=== PATIENT | male | born 1975 | race Caucasian/White ===

== ENCOUNTER → 2017-07-15 | Outpatient (CLI) | payer OTHER ==
--- NOTE | 2017-07-16 22:15 | MR ---
EXAMINATION TYPE: MR shoulder RT wo con DATE OF EXAM: 07/15/2017 COMPARISON: NONE HISTORY: Decrease range of motion, Rt shoulder pain TECHNIQUE: Multiplanar, multisequence imaging of the right shoulder is performed without contrast. FINDINGS: There is a shoulder joint effusion. Subscapularis tendon is intact. Biceps tendon is intact. There is spurring at the AC joint. There is no significant subacromial impingement. There is narrowing of the glenohumeral joint space with spur formation on the humeral head and the glenoid labrum. There are small foci of increased signal in the supraspinatus tendon near the greater tuberosity of t he humerus consistent with small partial tears. I see no definite complete tear. 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 Shoulder joint effusion. Intrasubstance tears of the supraspinatus tendon without a complete rotator cuff tear. No fracture se en.
== END | disposition home or self-care (01) ==
LOC: RADMRIMAIN 13:34
PROVIDERS: ATTEND Orthopaedic Surgery
DX: M19.011 Primary osteoarthritis, right shoulder (principal); M75.111 Incomplete rotator cuff tear or rupture of right shoulder, not specified as traumatic

== ENCOUNTER → 2018-10-03 | Outpatient (CLI) | payer OTHER ==
--- NOTE | 2018-10-03 08:23 | US ---
EXAMINATION TYPE: US kidneys/renal and bladder DATE OF EXAM: 10/03/2018 COMPARISON: NONE CLINICAL HISTORY: 42-year-old male R30.0 Dysuria, R39.12 Weak Urine Stream. Patient was on Flomax but has since stopped working, rt nephrectomy 25+yrs ago TECHNIQUE: Multiple sonographic images of the kidneys and bladder are obtained. FINDINGS: EXAM MEASUREMENTS: Right Kidney: Surgically absent Left Kidney: 13.2 x 8.0 x 7.5 cm Right Kidney: surgically absent Left Kidney: large in size compatible with compensatory hypertrophy, no masses or hydronephrosis seen Bladder: The circumferential bladder wall thickening measuring up to 6 mm possibly secondary to poor distention. Machine Sprayer notes: Patient having prostate exam next. Unable to fill bladder more due to exam to follow. Bilateral Jets seen: left IMPRESSION: 1. Status post right nephrectomy. Some compensatory hypertrophy noted of the left kidney. No hydronep hrosis. 2. Circumferential bladder wall thickening may relate to incomplete distention, chronic bladder wall hypertrophy, or cystitis. Clinically correlate.
--- NOTE | 2018-10-04 08:26 | US ---
EXAMINATION TYPE: US prostate transrectal DATE OF EXAM: 10/03/2018 COMPARISON: NONE CLINICAL HISTORY: R30.0 Dysuria, R39.12 Weak Urine Stream. Patient on Flomax for 1-2 yrs and had rece ntly stopped, rt nephrectomy This examination was performed using the transrectal probe. EXAM MEASUREMENTS: Gland Size: 3.4 x 4.0 x 2.1cm Volume: 14.9ml Predicted PSA: 1.8 Actual PSA (if available):called office and no PSA level was ever done Heterogeneous central zone with mostly homogeneous peripheral zone with no suspicious focal abnormali ty seen. IMPRESSION: Findings of mild benign prostatic hyperplasia with heterogenous central zone containing nodules with internal calcifications. No suspicious finding is seen in the peripheral zone at this ti me. Predicted PSA = volume x 0.12 ng/ml Calculated Volume = 0.5236 x L x W x H
== END | disposition home or self-care (01) ==
LOC: RADUSWWP 06:52
PROVIDERS: ATTEND Internal Medicine
DX: N28.81 Hypertrophy of kidney (principal); R93.41 Abnormal radiologic findings on diagnostic imaging of renal pelvis, ureter, or bladder; N40.0 Benign prostatic hyperplasia without lower urinary tract symptoms; N42.89 Other specified disorders of prostate; Z90.5 Acquired absence of kidney
CPT/HCPCS: 76770; 76872

== ENCOUNTER 2019-02-14 14:01 | Emergency (ER) | payer OTHER ==
[2019-02-14 14:28] VITALS: TEMP 98.1
[2019-02-14] MEDS ORDERED: ONDANSETRON 4 MG/2 ML VIAL IVP STA (14:55)
[2019-02-14] MEDS ORDERED: SODIUM CHLORIDE 0.9% 1,000 ML IV STA ×2 (14:55)
[2019-02-14] MEDS ORDERED: PANTOPRAZOLE 40 MG/10 ML VIAL IVP STA (14:55)
[2019-02-14] MEDS ORDERED: MORPHINE SULFATE 4 MG/ML SYRINGE IV STA (14:55)
[2019-02-14 15:24] LABS: Appearance,Urine Clear (Clear); Bilirubin,Urine Negative (Negative); Blood,Urine Negative (Negative); Color,Urine Yellow; Glucose,Urine (UA) Negative (Negative); Ketones,Urine Negative (Negative); Leukocyte Esterase,Urine Negative (Negative); Nitrite,Urine Negative (Negative); Protein,Urine Negative (Negative); Specific Gravity,Urine 1.008 (1.001-1.035); Urobilinogen,Urine <2.0 mg/dL (<2.0)
[2019-02-14 15:36] LABS: Basophils % (A) 1 %; Eosinophils # (A) 0.1 k/uL (0-0.7); Eosinophils % (A) 1 %; HCT 41.9 % (39.0-53.0); HGB 14.1 gm/dL (13.0-17.5); Lymphocytes # (A) 1.1 k/uL (1.0-4.8); Lymphocytes % (A) 20 %; MCH 28.8 pg (25.0-35.0); MCHC 33.6 g/dL (31.0-37.0); MCV 85.6 fL (80.0-100.0); Mean Platelet Volume 5.5; Monocytes # (A) 0.4 k/uL (0-1.0); Monocytes % (A) 7 %; Neutrophils # (A) 3.9 k/uL (1.3-7.7); Neutrophils % (A) 69 %; Platelet Count 250 k/uL (150-450); RDW 12.5 % (11.5-15.5); WBC 5.7 k/uL (3.8-10.6)
--- NOTE | 2019-02-14 15:36 | ED ---
Abdominal Pain HPI - General Chief Complaint: Abdominal Pain Stated Complaint: Abd pain Time Seen by Provider: 02/14/19 14:45 Source: patient, RN notes reviewed, old records reviewed Mode of arrival: ambulatory Limitations: no limitations - History of Present Illness Initial Comments: Patient is a 43-year-old male M he presents emergency department today with 2 days of right and left-sided lower abdominal pain. Patient reports that he's been having some nausea, chills 0. 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 Patient states that he did have a pulling injury lifting a lot of heavy weight on Monday the day before his symptoms started. He states the pain does not seem to be within his muscles as Patient reports he palpates and can twist and turn without movement but the pain seems to be deeper and more burning and sharp stabbing. Patient states that he has had an episode where he was near passing out due to pain. Patient states that he has no chest pain or shortness of breath. He denies any specific fever but has felt chilled from time to time. - Related Data Home Medications Medication Instructions Recorded Confirmed Atomoxetine HCl [Strattera] 40 mg PO QAM 09/06/15 09/06/15 Ipratropium-Albuterol Nebulize 3 ml INHALATION DAILY 09/06/15 09/06/15 [Duoneb 0.5 mg-3 mg/3 ml Soln] Tamsulosin HCl [Flomax] 0.4 mg PO DAILY 09/06/15 09/06/15 Previous Rx's Medication Instructions Recorded Acetaminophen-Codeine 300-30mg 1 each PO Q6H PRN #20 tablet 09/06/15 [Tylenol #3] Amoxicillin/Potassium Clav 1 each PO Q12HR #20 tab 09/06/15 [Augmentin 875-125 Tablet] Ibuprofen [Motrin] 800 mg PO Q6HR PRN #30 tab 09/06/15 Allergies Allergy/AdvReac Type Severity Reaction Status Date / Time No Known Allergies Allergy Verified 02/14/19 14:28 Review of Systems ROS Statement: Those systems with pertinent positive or pertinent negative responses have been documented in the HPI. ROS Other: All systems not noted in ROS Statement are negative. Past Medical History Past Medical History: Asthma, Prostate Disorder History of Any Multi-Drug Resistant Organisms: MRSA Date of last positivie culture/infection: 11/2015 MDRO Source:: RIGHT KNEE Past Surgical History: No Surgical Hx Reported Past Psychological History: ADD/ADHD Smoking Status: Never smoker Past Alcohol Use History: None Reported Past Drug Use History: Marijuana General Exam - General Exam Comments Initial Comments: Alert and oriented 43-year-old male. Patient appears in no significant distress. Limitations: no limitations General appearance: alert, in no apparent distress Head exam: Present: atraumatic, normocephalic, normal inspection Eye exam: Present: normal appearance, PERRL, EOMI. Absent: scleral icterus, conjunctival injection, periorbital swelling ENT exam: Present: normal exam, mucous membranes moist Neck exam: Present: normal inspection. Absent: tenderness, meningismus, lymphadenopathy Respiratory exam: Present: normal lung sounds bilaterally. Absent: respiratory distress, wheezes, rales, rhonchi, stridor Cardiovascular Exam: Present: regular rate, normal rhythm, normal heart sounds. Absent: systolic murmur, diastolic murmur, rubs, gallop, clicks GI/Abdominal exam: Present: soft, tenderness (Patient's tenderness over the left lower quadrant. Patient has evidence of scar over the right flank from the right kidney removal.), normal bowel sounds. Absent: distended, guarding, rebound, rigid Extremities exam: Present: normal inspection, full ROM, normal capillary refill. Absent: tenderness, pedal edema, joint swelling, calf tenderness Course Vital Signs 02/14/19 02/14/19 14:25 18:33 Temperature 98.1 F Pulse Rate 90 88 Respiratory 20 18 Rate Blood Pressure 135/85 131/86 O2 Sat by Pulse 99 98 Oximetry - Reevaluation(s) Reevaluation #1: 02/14/19 17:18 Was reevaluated, still continues to complain his pain is 8 out of 10. Medical Decision Making - Medical Decision Making 43 year old male with left sided abdominal pain for 2 days. Patient reports pain is deeper and complains of cramping. At this time labs are normal, contineus to complain of pain. CT abdomen and pelvis completed and shows no acute abnormality, in regards to left patient pain. PAtient advised to follow up with PCP. Return parameters discussed. - Lab Data Result diagrams: 02/14/19 15:10 02/14/19 15:10 Lab Results 02/14/19 02/14/1902/14/19 Range/Units 15:10 15:10 15:10 WBC 5.7 (3.8-10.6) k/uL RBC 4.90 (4.30-5.90) m/uL Hgb 14.1 (13.0-17.5) gm/dL Hct 41.9 (39.0-53.0) % MCV 85.6 (80.0-100.0) fL MCH 28.8 (25.0-35.0) pg MCHC 33.6 (31.0-37.0) g/dL RDW 12.5 (11.5-15.5) % Plt Count 250 (150-450) k/uL Neutrophils % 69 % Lymphocytes % 20 % Monocytes % 7 % Eosinophils % 1 % Basophils % 1 % Neutrophils # 3.9 (1.3-7.7) k/uL Lymphocytes # 1.1 (1.0-4.8) k/uL Monocytes # 0.4 (0-1.0) k/uL Eosinophils # 0.1 (0-0.7) k/uL Basophils # 0.0 (0-0.2) k/uL PT 10.1 (9.0-12.0) sec INR 0.9 (<1.2) APTT 30.6 H (22.0-30.0) sec Sodium 137 (137-145) mmol/L Potassium 4.2 (3.5-5.1) mmol/L Chloride 102 (98-107) mmol/L Carbon Dioxide 26 (22-30) mmol/L Anion Gap 9 mmol/L BUN 12 (9-20) mg/dL Creatinine 0.63 L (0.66-1.25) mg/dL Est GFR (CKD-EPI)AfAm >90 (>60 ml/min/1.73 sqM) Est GFR (CKD-EPI)NonAf >90 (>60 ml/min/1.73 sqM) Glucose 91 (74-99) mg/dL Calcium 8.9 (8.4-10.2) mg/dL Total Bilirubin 0.7 (0.2-1.3) mg/dL AST 24 (17-59) U/L ALT 23 (21-72) U/L Alkaline Phosphatase 74 (38-126) U/L Troponin I (0.000-0.034) ng/mL Total Protein 6.6 (6.3-8.2) g/dL Albumin 4.0 (3.5-5.0) g/dL Amylase 46 (30-110) U/L Lipase 60 (23-300) U/L Urine Color Urine Appearance (Clear) Urine pH (5.0-8.0) Ur Specific [place] (1.001-1.035) Urine Protein (Negative) Urine Glucose (UA) (Negative) Urine Ketones (Negative) Urine Blood (Negative) Urine Nitrite (Negative) Urine Bilirubin (Negative) Urine Urobilinogen (<2.0) mg/dL Ur Leukocyte Esterase (Negative) 02/14/19 02/14/19 Range/Units 15:10 15:10 WBC (3.8-10.6) k/uL RBC (4.30-5.90) m/uL Hgb (13.0-17.5) gm/dL Hct (39.0-53.0) % MCV (80.0-100.0) fL MCH (25.0-35.0) pg MCHC (31.0-37.0) g/dL RDW (11.5-15.5) % Plt Count (150-450) k/uL Neutrophils % % Lymphocytes % % Monocytes % % Eosinophils % % Basophils % % Neutrophils # (1.3-7.7) k/uL Lymphocytes # (1.0-4.8) k/uL Monocytes # (0-1.0) k/uL Eosinophils # (0-0.7) k/uL Basophils # (0-0.2) k/uL PT (9.0-12.0) sec INR (<1.2) APTT (22.0-30.0) sec Sodium (137-145) mmol/L Potassium (3.5-5.1) mmol/L Chloride (98-107) mmol/L Carbon Dioxide (22-30) mmol/L Anion Gap mmol/L BUN (9-20) mg/dL Creatinine (0.66-1.25) mg/dL Est GFR (CKD-EPI)AfAm (>60 ml/min/1.73 sqM) Est GFR (CKD-EPI)NonAf (>60 ml/min/1.73 sqM) Glucose (74-99) mg/dL Calcium (8.4-10.2) mg/dL Total Bilirubin (0.2-1.3) mg/dL AST (17-59) U/L ALT (21-72) U/L Alkaline Phosphatase (38-126) U/L Troponin I <0.012 (0.000-0.034) ng/mL Total Protein (6.3-8.2) g/dL Albumin (3.5-5.0) g/dL Amylase (30-110) U/L Lipase (23-300) U/L Urine Color Yellow Urine Appearance Clear (Clear) Urine pH 6.0 (5.0-8.0) Ur Specific [place] 1.008 (1.001-1.035) Urine Protein Negative (Negative) Urine Glucose (UA) Negative (Negative) Urine Ketones Negative (Negative) Urine Blood Negative (Negative) Urine Nitrite Negative (Negative) Urine Bilirubin Negative (Negative) Urine Urobilinogen <2.0 (<2.0) mg/dL Ur Leukocyte Esterase Negative (Negative) 02/14/19 17:19 EKG performed at 1535 inches normal sinus rhythm septal infarct age undetermined. Ventricular rate of 69 bpm. Intervals 144 ms. QS hindu is 98 ms. QT QTc is 414/443 ms. - Radiology Data Radiology results: report reviewed CXR shows Suspected tiny right pleural effusion, no acute focal infiltrate. KUB shows no acute process. CT shows previous surgery. Right nephrectomy. No sign of acute abdomen and pelvis. No cause LLQ pain. Disposition Clinical Impression: Left sided abdominal pain Disposition: HOME SELF-CARE Condition: Good Instructions (If sedation given, give patient instructions): Abdominal Pain (ED) Additional Instructions: Please use medication as discussed. Please follow up with family doctor if symptoms have not improved over the next two days. Please return to the emergency room if your symptoms increase or worsen or for any other concerns. Is patient prescribed a controlled substance at d/c from ED?: No Referrals: Olga Amaya MD [Primary Care Provider] - 1-2 days Time of Disposition: 18:06
--- NOTE | 2019-02-14 15:36 | XR ---
EXAMINATION TYPE: XR chest 2V DATE OF EXAM: 02/14/2019 COMPARISON: NONE HISTORY: Chest and abdominal pain after heavy lifting. TECHNIQUE: Frontal and lateral views of the chest are obtained. FINDINGS: There is no focal air space opacity or pneumothorax seen. Suggestion of small to tiny rig ht pleural effusion on the lateral view with blunting of posterior costophrenic angle. The cardiac si lhouette size is within normal limits. Calcifications or ossifications over left scapula could refl ect intra-articular loose bodies. The osseous structures are intact. IMPRESSION: Suspect tiny right pleural effusion. No acute focal infiltrate.
[2019-02-14 15:37] LABS: ALT 23 U/L (21-72); AST 24 U/L (17-59); African American GFR (CKD) >90 (>60 ml/min/1.73 sqM); Alkaline Phosphatase 74 U/L (38-126); Amylase 46 U/L (30-110); Anion Gap 9 mmol/L; Blood Urea Nitrogen 12 mg/dL (9-20); Calcium 8.9 mg/dL (8.4-10.2); Carbon Dioxide 26 mmol/L (22-30); Chloride 102 mmol/L (98-107); Glucose 91 mg/dL (74-99); Potassium 4.2 mmol/L (3.5-5.1); Sodium 137 mmol/L (137-145); Total Bilirubin 0.7 mg/dL (0.2-1.3); Total Protein 6.6 g/dL (6.3-8.2)
--- NOTE | 2019-02-14 15:37 | XR ---
EXAMINATION TYPE: XR KUB DATE OF EXAM: 02/14/2019 3:31 PM CLINICAL HISTORY: Abdominal pain after lifting injury. TECHNIQUE: Two Upright KUB images of the abdomen are obtained. COMPARISON: None. FINDINGS: Scattered gas is seen in non-distended stomach and small bowel loops. Gas and fecal materia l is seen in non-distended colon. Cholecystectomy clips are seen. Surgical clips right pelvis are not ed. Lung bases are clear. IMPRESSION: Overall nonobstructive bowel gas pattern.
[2019-02-14 15:38] LABS: INR 0.9 (<1.2); Partial Thromboplastin Time 30.6 sec (22.0-30.0); Prothrombin Time 10.1 sec (9.0-12.0)
--- NOTE | 2019-02-14 18:00 | CT ---
EXAMINATION TYPE: CT abdomen pelvis w con DATE OF EXAM: 02/14/2019 COMPARISON: None HISTORY: Left lower quadrant pain. CT DLP: 915.1 mGycm Automated exposure control for dose reduction was used. TECHNIQUE: Helical acquisition of images was performed from the lung bases through the pelvis. CONTRAST: Performed without Oral Contrast and with IV Contrast, patient injected with 100 mL of Isovue 300. FINDINGS: Lung bases are clear. There is no pleural effusion. Heart size is normal. There is no pericardial eff usion. Stomach appears normal. Liver spleen pancreas gallbladder appear normal. The bile ducts are no t dilated. There are clips from right nephrectomy. Left kidney has compensatory hypertrophy. There is no hydronephrosis. There is no retroperitoneal adenopathy. Bladder distends smoothly. There is no in guinal hernia. There is no free fluid in the pelvis. There are surgical clips on the right side in th e pelvis. There is no evidence of a pelvic mass. Appendix appears normal. There is no mesenteric chela a. There is no ascites or free air. There is no sign of a bowel obstruction. There is L5-S1 disc spac e narrowing with vacuum disc and spur formation. There is no evidence of compression fracture. The maged ny pelvis is intact. There are small degenerative cysts in the right acetabulum. IMPRESSION: PREVIOUS SURGERY. RIGHT NEPHRECTOMY. NO SIGN OF ACUTE ABDOMEN AND PELVIS. I DO NOT SEE A CAUSE FOR LE FT LOWER QUADRANT PAIN.
[2019-02-14 18:34] VITALS: BP 131/86; PULSE 88; RESP 18
== END 2019-02-14 18:35 | disposition home or self-care (01) ==
LOC: EC 14:01
DX: R10.32 Left lower quadrant pain (principal); J45.909 Unspecified asthma, uncomplicated; N42.9 Disorder of prostate, unspecified; F90.9 Attention-deficit hyperactivity disorder, unspecified type; Z79.51 Long term (current) use of inhaled steroids; Z79.899 Other long term (current) drug therapy; Z90.5 Acquired absence of kidney; Z86.14 Personal history of Methicillin resistant Staphylococcus aureus infection
CPT/HCPCS: 36415; 93005; 80053; 82150; 83690; 84484; 85025; 85610; 85730; 81003; 71046; 74018; 74177; 99285; 96374; 96375 ×2; 96361 ×3; J2270; J2405; C9113; Q9967

== ENCOUNTER 2022-04-22 09:00 | Emergency (ER) | payer OTHER ==
[2022-04-22 09:07] VITALS: BP 217/81; PULSE 91; RESP 20; TEMP 98.2
[2022-04-22 10:53] LABS: Appearance,Urine Clear (Clear); Bilirubin,Urine Negative (Negative); Blood,Urine Negative (Negative); Color,Urine Light Yellow; Glucose,Urine (UA) Negative (Negative); Ketones,Urine Negative (Negative); Leukocyte Esterase,Urine Negative (Negative); Nitrite,Urine Negative (Negative); Protein,Urine Negative (Negative); Specific Gravity,Urine 1.007 (1.001-1.035); Urobilinogen,Urine <2.0 mg/dL (<2.0)
--- NOTE | 2022-04-22 11:21 | US ---
EXAMINATION TYPE: US groin LT DATE OF EXAM: 04/22/2022 COMPARISON: CT abdomen pelvis 02/14/2019. CLINICAL HISTORY: pain, hernia. pain in left groin area. TECHNIQUE: Grayscale and color ultrasound images of the left groin were obtained. FINDINGS/IMPRESSION: No solid or cystic masses identified. No visualized hernia or organized fluid c ollection.
--- NOTE | 2022-04-22 11:49 | ED ---
Abdominal Pain HPI - General Chief Complaint: Abdominal Pain Stated Complaint: abd pain Time Seen by Provider: 04/22/22 09:10 Source: patient Mode of arrival: ambulatory Limitations: no limitations - History of Present Illness Initial Comments: 6-year-old male with past history of prostate disorder, asthma presents to the emergency room reporting left groin pain. States that yesterday he felt a bulge in his left groin. He was able to reduce it but has some persistent cramping in the region. No history of hernia. Denies urinary complaints. Has been dribbling and increased frequency of voiding however feels as if he is completely emptying. No hematuria. Denies diarrhea, constipation, black or bloody stools. Pain is greatly resolved from yesterday. No fevers. No other alleviating, Perceptin or modifying factors - Related Data Home Medications Medication Instructions Recorded Confirmed Atomoxetine HCl [Strattera] 40 mg PO QAM 09/06/15 09/06/15 Ipratropium-Albuterol Nebulize 3 ml INHALATION DAILY 09/06/15 09/06/15 [Duoneb 0.5 mg-3 mg/3 ml Soln] Tamsulosin HCl [Flomax] 0.4 mg PO DAILY 09/06/15 09/06/15 Previous Rx's Medication Instructions Recorded Acetaminophen-Codeine 300-30mg 1 each PO Q6H PRN #20 tablet 09/06/15 [Tylenol #3] Amoxicillin/Potassium Clav 1 each PO Q12HR #20 tab 09/06/15 [Augmentin 875-125 Tablet] Ibuprofen [Motrin] 800 mg PO Q6HR PRN #30 tab 09/06/15 Allergies Allergy/AdvReac Type Severity Reaction Status Date / Time No Known Allergies Allergy Verified 04/22/22 09:07 Review of Systems ROS Statement: Those systems with pertinent positive or pertinent negative responses have been documented in the HPI. ROS Other: All systems not noted in ROS Statement are negative. Past Medical History Past Medical History: Asthma, Prostate Disorder History of Any Multi-Drug Resistant Organisms: MRSA Date of last positivie culture/infection: 11/2015 MDRO Source:: RIGHT KNEE Past Surgical History: No Surgical Hx Reported Past Psychological History: ADD/ADHD Smoking Status: Current every day smoker Past Alcohol Use History: None Reported Past Drug Use History: Marijuana General Exam Limitations: no limitations General appearance: alert, in no apparent distress Head exam: Present: atraumatic, normocephalic, normal inspection Eye exam: Present: normal appearance, PERRL, EOMI. Absent: scleral icterus, conjunctival injection, periorbital swelling ENT exam: Present: normal exam, mucous membranes moist Neck exam: Present: normal inspection. Absent: tenderness, meningismus, lymphadenopathy Respiratory exam: Present: normal lung sounds bilaterally. Absent: respiratory distress, wheezes, rales, rhonchi, stridor Cardiovascular Exam: Present: regular rate, normal rhythm, normal heart sounds. Absent: systolic murmur, diastolic murmur, rubs, gallop, clicks GI/Abdominal exam: Present: soft, normal bowel sounds. Absent: distended, tende rness, guarding, rebound, rigid, hernia Extremities exam: Present: normal inspection, full ROM, normal capillary refill. Absent: tenderness, pedal edema, joint swelling, calf tenderness Back exam: Present: normal inspection Neurological exam: Present: alert, oriented X3, CN II-XII intact Psychiatric exam: Present: normal affect, normal mood Skin exam: Present: warm, dry, intact, normal color. Absent: rash Course Vital Signs 04/22/22 09:05 Temperature 98.2 F Pulse Rate 91 Respiratory 20 Rate Blood Pressure 217/81 O2 Sat by Pulse 98 Oximetry Medical Decision Making - Medical Decision Making Was pt. sent in by a medical professional or institution? no Did you speak to anyone other than the patient for history? no Did you review nursing and triage notes? yes and I agree Were old charts reviewed? no Differential Diagnosis? MDM Differential Abdominal Pain Men: Appendicitis, cholecystitis, diverticulosis, ischemic bowel, pancreatitis, hepatitis, UTI, gastroenteritis, AAA, incarcerated hernia, bowel obstruction, constipation, inflammatory bowel, hepatitis, peptic ulcer disease, splenic infarction, perforated viscus, testicular torsion... This is not meant to be an all-inclusive list EKG interpreted by me (3pts min.)? no X-rays interpreted by me (1pt min.)? no CT interpreted by me (1pt min.)? no U/S interpreted by me (1pt. min.)? yes What testing was considered but not performed? (CT, X-rays, U/S, labs)? Why? none What meds were considered but not given? Why? none Did you discuss the management of the patient with other professionals? no Did you reconcile home meds? no Was smoking cessation discussed for >3mins.? no Was critical care preformed (if so, how long)? no Were there social determinants of health that impacted care today? How? (Homelessness, low income, unemployed, alcoholism, drug addiction, transportation, low edu. Level, literacy, decrease access to med. care, skilled nursing, rehab)? no Was there de-escalation of care discussed even if they declined? (Discuss DNR or withdrawal of care, Hospice)? no What co-morbidities impacted this encounter? (DM, HTN, Smoking, COPD, CAD, Cancer, CVA, Hep., AIDS, mental health diagnosis, sleep apnea, morbid obesity)? none Was patient admitted / discharged? Upon arrival patient was placed into room 17. A thorough history and physical exam was performed. Patient has tenderness to palpation of the inguinal canal however no hernia appreciated at this time. Patient does provide a urine jesenia ple. He is bladder scanned and has 35 mL retained in his bladder. Ultrasound is performed of the left inguinal canal without acute hernia at this time. Patient will be discharged home. Instructed to follow up with surgery for consultation. No heavy lifting. Return to the emergency room and she develop any other new or worsening symptoms. Patient agreeable and discharged home in stable condition Undiagnosed new problem with uncertain prognosis? yes Drug Therapy requiring intensive monitoring for toxicity (Heparin, Nitro, Insulin, Cardizem)? no Were any procedures done? no Diagnosis/symptom? lower abd pain, possible hernia Acute, or Chronic, or Acute on Chronic? acute Uncomplicated (without systemic symptoms) or Complicated (systemic symptoms)? uncomplicated Side effects of treatment? none Exacerbation, Progression, or Severe Exacerbation] no Poses a threat to life or bodily function? no - Lab Data Lab Results 04/22/22 Range/Units 10:42 Urine Color Light Yellow Urine Appearance Clear (Clear) Urine pH 7.0 (5.0-8.0) Ur Specific [place] 1.007 (1.001-1.035) Urine Protein Negative (Negative) Urine Glucose (UA) Negative (Negative) Urine Ketones Negative (Negative) Urine Blood Negative (Negative) Urine Nitrite Negative (Negative) Urine Bilirubin Negative (Negative) Urine Urobilinogen <2.0 (<2.0) mg/dL Ur Leukocyte Esterase Negative (Negative) Disposition Clinical Impression: Reducible left inguinal hernia Disposition: HOME SELF-CARE Condition: Stable Instructions (If sedation given, give patient instructions): Inguinal Hernia (ED) Additional Instructions: Please follow-up with the surgeon for evaluation. Return to the ED for any new or worsening symptoms. No heavy lifting. Is patient prescribed a controlled substance at d/c from ED?: No Referrals: Olga Amaya MD [Primary Care Provider] - 1-2 days Alexx Perea MD [STAFF PHYSICIAN] - 1-2 days Time of Disposition: 11:48
== END 2022-04-22 11:55 | disposition home or self-care (01) ==
LOC: EC 09:00
DX: K40.90 Unilateral inguinal hernia, without obstruction or gangrene, not specified as recurrent (principal); J45.909 Unspecified asthma, uncomplicated; F12.90 Cannabis use, unspecified, uncomplicated; F17.200 Nicotine dependence, unspecified, uncomplicated; Z79.899 Other long term (current) drug therapy
CPT/HCPCS: 51798; 81003; 99284

== ENCOUNTER → 2022-05-28 | Outpatient (CLI) | payer OTHER ==
[2022-05-28 16:33] LABS: Basophils # (A) 0.01 X 10*3/uL (0.00-0.10); Basophils % (A) 0.2 %; Eosinophils # (A) 0.34 X 10*3/uL (0.04-0.35); Eosinophils % (A) 5.5 %; HCT 44.2 % (39.6-50.0); HGB 14.4 g/dL (13.0-17.0); Immature Grans, Automated 0.3 %; Lymphocytes # (A) 1.27 X 10*3/uL (0.90-5.00); Lymphocytes % (A) 20.5 %; MCH 28.5 pg (27.0-32.0); MCHC 32.6 g/dL (32.0-37.0); MCV 87.4 fL (80.0-97.0); Monocytes # (A) 0.55 X 10*3/uL (0.20-1.00); Monocytes % (A) 8.9 %; NRBC Per 100 WBC 0 /100 WBCS (0.0-0.0); Neutrophils # (A) 4.01 X 10*3/uL (1.80-7.70); Neutrophils % (A) 64.6 %; Platelet Count 280 X 10*3/uL (140-440); RBC 5.06 X 10*6/uL (4.40-5.60); RDW 12.7 % (11.5-14.5)
== END | disposition home or self-care (01) ==
LOC: LABWHC1 10:21
PROVIDERS: ATTEND Surgery
DX: Z01.818 Encounter for other preprocedural examination (principal); Z53.9 Procedure and treatment not carried out, unspecified reason
CPT/HCPCS: 36415; 85025; 93005

== ENCOUNTER → 2022-10-18 | Outpatient (CLI) | payer OTHER ==
--- NOTE | 2022-10-18 16:40 | US ---
EXAMINATION TYPE: US venous doppler duplex LE LT DATE OF EXAM: 10/18/2022 4:22 PM COMPARISON: NONE CLINICAL INDICATION: Male, 46 years old with history of M79.605 PAIN IN LEFT LEG; SIDE PERFORMED: Left TECHNIQUE: The lower extremity deep venous system is examined utilizing real time linear array sonog elizabeth with graded compression, doppler sonography and color-flow sonography. VESSELS IMAGED: Common Femoral Vein Deep Femoral Vein Greater Saphenous Vein * Femoral Vein Popliteal Vein Small Saphenous Vein * Proximal Calf Veins (* superficial vessels) Left Leg: Negative for DVT IMPRESSION: Grayscale, color doppler, spectral doppler imaging performed of the deep veins of the lo wer extremities. There is normal flow, compressibility, vascular waveforms.
== END | disposition home or self-care (01) ==
LOC: RADUSWWP 16:06
PROVIDERS: ATTEND Family Medicine
DX: M79.605 Pain in left leg (principal)